=== PATIENT | male | born 1950 | race Caucasian/White ===

== ENCOUNTER 2017-09-23 08:23 | Inpatient (IN) | payer OTHER, MEDICAID ==
[2017-09-23 08:40] LABS: ADD MAN DIFF? NO
[2017-09-23] MEDS: ONDANSETRON 4 MG INJ IV (08:40)
[2017-09-23] MEDS: ASPIRIN 81 MG TAB PO (08:40)
[2017-09-23] MEDS: morphine 4 MG/ML VIAL IV (08:40)
[2017-09-23 08:42] LABS: BASOPHILS % 0.3 % (0.0-2.0); EOSINOPHILS % 0.2 % (0.0-7.0); HEMATOCRIT 50.9 % (42.0-52.0); HEMOGLOBIN 17.1 g/dl (14.0-18.0); LYMPHOCYTES # 1.2 10^3/ul (0.8-2.9); LYMPHOCYTES % 18.3 % (15.0-51.0); MEAN CORPUSCULAR HGB CONC 33.6 g/dl (32.0-37.0); MEAN CORPUSCULAR VOLUME 86.3 fl (82.0-101.0); MEAN PLATELET VOLUME 10.9 fl (7.4-10.4); MONOCYTE # 0.5 10^3/ul (0.3-0.9); NEUTROPHIL # 4.6 10^3/ul (1.6-7.5); PLATELET COUNT 170 10^3/UL (140-415); RED CELL DISTRIBUTION WIDTH 13.4 % (11.5-14.5)
[2017-09-23 08:42] LABS: WHITE BLOOD COUNT 6.4 10^3/ul (4.8-10.8)
[2017-09-23] MEDS: HEPARIN 1000 UNITS/ML 10 ML INJ IV (08:42)
[2017-09-23] MEDS: HYDROmorphONE 1 MG/ML SYG IV (08:46)
[2017-09-23 09:02] LABS: PARTIAL THROMBOPLASTIN TIME 25.3 Sec (25.0-35.0); PROTIME 12.2 Sec (11.9-14.9)
[2017-09-23] MEDS ORDERED: IODIXANOL LOCM 100 ML BTL (09:02)
[2017-09-23] MEDS ORDERED: HEPARIN 1000 UNITS/ML 10 ML INJ (09:02)
[2017-09-23] MEDS ORDERED: LIDOCAINE 1% (MDV) 20 ML INJ ×2 (09:02→10:18)
[2017-09-23] MEDS ORDERED: MIDAZOLAM 1 MG/ML 2 ML INJ (09:02)
[2017-09-23] MEDS ORDERED: VERAPAMIL 5 MG INJ (09:03)
[2017-09-23] MEDS ORDERED: FENTAnyl 50 MCG/ML VIAL (09:03)
[2017-09-23] MEDS ORDERED: NITROGLYCERIN (IC) 100 MCG/ML INJ (09:03)
[2017-09-23 09:04] LABS: ANION GAP 13 (8-16); CALCIUM 9.5 mg/dl (8.4-10.2); CARBON DIOXIDE 26 mmol/L (21-31); CHLORIDE 108 mmol/L (97-110); CREATININE 0.84 mg/dl (0.61-1.24); GLUCOSE 163 mg/dl (70-220); POTASSIUM 4.2 mmol/L (3.5-5.1); SODIUM 143 mmol/L (135-144)
[2017-09-23] MEDS ORDERED: SOD CHLORIDE 0.9% 1,000 ML IV (09:04)
[2017-09-23 09:06] LABS: BLOOD UREA NITROGEN 23 mg/dl (7-20)
[2017-09-23] MEDS ORDERED: SOD CHLORIDE 0.9% 500 ML (09:24)
[2017-09-23 09:25] LABS: TROPONIN-I < 0.010 ng/ml (0.000-0.120)
[2017-09-23] MEDS ORDERED: TICAGRELOR 90 MG TABLET (09:28)
[2017-09-23] MEDS ORDERED: ONDANSETRON 4 MG INJ IV (09:30)
[2017-09-23] MEDS ORDERED: ACETAMINOPHEN 325 MG TAB PO ×2 (09:30→10:00)
[2017-09-23] MEDS: BIVALIRUDIN 250 MG in SOD CHLORIDE 0.9% 500 ML IV (10:00)
[2017-09-23] MEDS ORDERED: OXYCODONE/ACETAMINOPHEN (5/325) TAB PO (10:00)
[2017-09-23] MEDS ORDERED: BIVALIRUDIN 250MG /NS 50 ML 50 ML IVPB (10:18)
[2017-09-23] MEDS: SOD CHLORIDE 0.9% 1,000 ML IV (11:01)
[2017-09-23 14:23] LABS: ADD MAN DIFF? NO
[2017-09-23 14:28] LABS: BASOPHILS % 0.3 % (0.0-2.0); HEMATOCRIT 45.8 % (42.0-52.0); HEMOGLOBIN 15.3 g/dl (14.0-18.0); LYMPHOCYTES # 0.8 10^3/ul (0.8-2.9); LYMPHOCYTES % 10.8 % (15.0-51.0); MEAN CORPUSCULAR HEMOGLOBIN 28.8 pg (29.0-33.0); MEAN CORPUSCULAR HGB CONC 33.4 g/dl (32.0-37.0); MEAN CORPUSCULAR VOLUME 86.3 fl (82.0-101.0); MEAN PLATELET VOLUME 10.6 fl (7.4-10.4); MONOCYTE # 0.5 10^3/ul (0.3-0.9); MONOCYTES % 6.5 % (0.0-11.0); NEUTROPHIL # 6.2 10^3/ul (1.6-7.5); NEUTROPHILS % 82.1 % (39.0-77.0); PLATELET COUNT 148 10^3/UL (140-415); RED BLOOD COUNT 5.31 10^6/ul (4.70-6.10); RED CELL DISTRIBUTION WIDTH 13.4 % (11.5-14.5)
[2017-09-23 14:28] LABS: WHITE BLOOD COUNT 7.6 10^3/ul (4.8-10.8)
[2017-09-23 14:47] LABS: ALANINE AMINOTRANSFERASE 33 IU/L (13-69); ALBUMIN 3.8 g/dl (3.3-4.9); ALBUMIN/GLOBULIN RATIO 1.35; ALKALINE PHOSPHATASE 68 IU/L (42-121); ANION GAP 13 (8-16); ASPARTATE AMINO TRANSFERASE 42 IU/L (15-46); BILIRUBIN,INDIRECT 0.8 mg/dl (0-1.1); BILIRUBIN,TOTAL 0.8 mg/dl (0.2-1.3); BLOOD UREA NITROGEN 19 mg/dl (7-20); CALCIUM 8.7 mg/dl (8.4-10.2); CARBON DIOXIDE 24 mmol/L (21-31); CHLORIDE 109 mmol/L (97-110); CREATINE KINASE 249 IU/L (23-200); CREATININE 0.66 mg/dl (0.61-1.24); GLUCOSE 85 mg/dl (70-220); POTASSIUM 4.4 mmol/L (3.5-5.1); SODIUM 142 mmol/L (135-144); TOTAL PROTEIN 6.6 g/dl (6.1-8.1)
[2017-09-23 14:59] LABS: CK INDEX 7.9
[2017-09-23] MEDS: FAMOTIDINE 20 MG TAB PO (20:35)
[2017-09-23] MEDS: ATORVASTATIN 80 MG TAB PO (20:35)
[2017-09-23] MEDS: TICAGRELOR 90 MG TABLET PO (20:37)
[2017-09-24 05:08] LABS: ADD MAN DIFF? NO
[2017-09-24 05:12] LABS: BASOPHILS % 0.3 % (0.0-2.0); EOSINOPHILS % 0.1 % (0.0-7.0); HEMATOCRIT 45.1 % (42.0-52.0); HEMOGLOBIN 15.5 g/dl (14.0-18.0); LYMPHOCYTES # 1.1 10^3/ul (0.8-2.9); LYMPHOCYTES % 15.2 % (15.0-51.0); MEAN CORPUSCULAR HEMOGLOBIN 29.2 pg (29.0-33.0); MEAN CORPUSCULAR HGB CONC 34.4 g/dl (32.0-37.0); MEAN CORPUSCULAR VOLUME 84.9 fl (82.0-101.0); MONOCYTE # 0.8 10^3/ul (0.3-0.9); MONOCYTES % 11.8 % (0.0-11.0); NEUTROPHIL # 5.1 10^3/ul (1.6-7.5); NEUTROPHILS % 72.3 % (39.0-77.0); PLATELET COUNT 136 10^3/UL (140-415); POSITIVE DIFF @See below; RED BLOOD COUNT 5.31 10^6/ul (4.70-6.10); RED CELL DISTRIBUTION WIDTH 13.5 % (11.5-14.5)
[2017-09-24 05:12] LABS: WHITE BLOOD COUNT 7.1 10^3/ul (4.8-10.8)
[2017-09-24 05:30] LABS: HEMOGLOBIN A1C 5.5 % (0-5.9)
[2017-09-24 05:32] LABS: CREATINE KINASE 456 IU/L (23-200)
[2017-09-24 05:37] LABS: PHOSPHORUS 3.4 mg/dl (2.5-4.9)
[2017-09-24 05:43] LABS: B-TYPE NATRIURETIC PEPTIDE 1330 PG/ML (0-125)
[2017-09-24 05:44] LABS: ALANINE AMINOTRANSFERASE 35 IU/L (13-69); ALBUMIN 3.6 g/dl (3.3-4.9); ALBUMIN/GLOBULIN RATIO 1.24; ALKALINE PHOSPHATASE 59 IU/L (42-121); ANION GAP 6 (8-16); ASPARTATE AMINO TRANSFERASE 88 IU/L (15-46); BILIRUBIN,INDIRECT 1.3 mg/dl (0-1.1); BILIRUBIN,TOTAL 1.3 mg/dl (0.2-1.3); BLOOD UREA NITROGEN 13 mg/dl (7-20); CALCIUM 8.9 mg/dl (8.4-10.2); CARBON DIOXIDE 28 mmol/L (21-31); CHLORIDE 109 mmol/L (97-110); CHOL/HDL RATIO 2.9 RATIO; CHOLESTEROL 174 mg/dl (100-200); CK INDEX 6.1; CREATININE 0.76 mg/dl (0.61-1.24); GLUCOSE 87 mg/dl (70-220); HDL CHOLESTEROL 59 mg/dl (30-78); LDL CHOLESTEROL,CALCULATED 101 mg/dl; MAGNESIUM 1.7 mg/dl (1.7-2.5); POTASSIUM 4.5 mmol/L (3.5-5.1); SODIUM 138 mmol/L (135-144); TOTAL PROTEIN 6.5 g/dl (6.1-8.1); TRIGLYCERIDES 72 mg/dl (0-149)
[2017-09-24 05:51] LABS: FREE T4 (FREE THYROXINE) 0.94 ng/dl (0.78-2.44)
[2017-09-24] MEDS ORDERED: LOSARTAN 25 MG TAB PO (09:00)
[2017-09-24] MEDS: FAMOTIDINE 20 MG TAB PO ×2 (09:19→21:01)
[2017-09-24] MEDS: ASPIRIN (EC) 81 MG TAB PO (09:19)
[2017-09-24] MEDS: LISINOPRIL 20 MG TAB PO (09:19)
[2017-09-24] MEDS: TICAGRELOR 90 MG TABLET PO ×2 (09:19→21:06)
[2017-09-24] MEDS: ATORVASTATIN 80 MG TAB PO (21:01)
[2017-09-25] MEDS: TICAGRELOR 90 MG TABLET PO (09:36)
[2017-09-25] MEDS: LISINOPRIL 20 MG TAB PO (09:39)
[2017-09-25] MEDS: FAMOTIDINE 20 MG TAB PO (09:40)
[2017-09-25] MEDS: ASPIRIN (EC) 81 MG TAB PO (09:40)
== END 2017-09-25 12:10 | disposition home or self-care (01) | DRG 247 ==
LOC: ICU 09-24 22:15 → E/R 08:23 → CCL 09:03 → SDS 09:03 → TEL 09-24 22:15 → CCL 10:10 → ICU 10:10 → CCL 09:03 → TEL 09-24 22:15 → SDS 09:03 → ICU 10:10
PROC: 027034Z Dilation of Coronary Artery, One Artery with Drug-eluting Intraluminal Device, Percutaneous Approach (ICD-10-PCS; principal; 2017-09-23 08:45)
PROC: 02C03ZZ Extirpation of Matter from Coronary Artery, One Artery, Percutaneous Approach (ICD-10-PCS; 2017-09-23 08:45)
PROC: 4A023N7 Measurement of Cardiac Sampling and Pressure, Left Heart, Percutaneous Approach (ICD-10-PCS; 2017-09-23 08:45)
PROC: B211YZZ Fluoroscopy of Multiple Coronary Arteries using Other Contrast (ICD-10-PCS; 2017-09-23 08:45)
PROC: B215YZZ Fluoroscopy of Left Heart using Other Contrast (ICD-10-PCS; 2017-09-23 08:45)
DX: I21.09 ST elevation (STEMI) myocardial infarction involving other coronary artery of anterior wall (principal); I10 Essential (primary) hypertension; E78.5 Hyperlipidemia, unspecified; R00.1 Bradycardia, unspecified; I25.10 Atherosclerotic heart disease of native coronary artery without angina pectoris
CPT/HCPCS: 36415; 71045; 80048; 80053; 80061; 82550; 82553; 83036; 83735; 83880; 84100; 84439; 84443; 84484; 85025; 85610; 85730; 87081; 93005; 93306; 93458; 96374; 96375; 99291-25

== ENCOUNTER 2017-12-08 16:50 | Emergency (ER) | payer OTHER, MEDICAID | END 2017-12-08 20:55 | disposition home or self-care (01) | LOC: E/R 16:50 | DX: R07.89 Other chest pain (principal); I10 Essential (primary) hypertension; I25.10 Atherosclerotic heart disease of native coronary artery without angina pectoris; Z79.82 Long term (current) use of aspirin; Z98.61 Coronary angioplasty status | CPT/HCPCS: 71045; 93005; 99284-25 ==